=== PATIENT | female | born 1985 | race Caucasian/White ===

== ENCOUNTER 2024-07-03 16:03 | Emergency (ER) | payer OTHER, SELFPAY ==
[2024-07-03 16:13] VITALS: BP 163/99; PULSE 74; RESP 20; TEMP 36.2; O2SAT 99; BMI 38.0
--- NOTE | 2024-07-03 16:15 | ED.GENADULT ---
HPI - General Adult General Chief complaint: Nausea/Vomiting/Diarrhea Stated complaint: vomiting/dehydrated Time Seen by Provider: 07/03/24 22:05 Source: patient Limitations: no limitations History of Present Illness ED Provider: Chelsea Hall PA-C HPI narrative: 38-year-old female with a history of morbid obesity presents with nausea vomiting diarrhea x3 days. Pain across the entire lower abdomen. Associated generalized malaise and poor p.o. intake. Denies fever or cough and cold symptoms. No sick contacts with same symptoms. No use of antibiotics, recent travel or recent hospitalization. Related Data Previous Rx's ?Medication ?Instructions ?Recorded dicyclomine 20 mg tablet 20 mg PO BID PRN diarrhea #7 tabs 07/04/24 ondansetron HCl 4 mg tablet 4 mg PO Q8H PRN nausea and 07/04/24 vomiting #10 tabs Allergies Allergy/AdvReac Type Severity Reaction Status Date / Time No Known Allergies Allergy Verified 07/03/24 16:15 Review of Systems Review of Systems: Yes all other systems are reviewed and are negative Constitutional: Constitutional: Reports fatigue, Denies fever(s) and Reports malaise Cardiovascular: Cardiovascular: Denies chest pain and Denies dyspnea Respiratory: Respiratory: Denies cough and Denies dyspnea Gastrointestinal: Gastrointestinal: Reports abdominal pain, Reports diarrhea, Reports nausea and Reports vomiting Endocrine: Endocrine: Reports fatigue PMFSH Past Medical History Attestation statement: The following information was validated with the patient. Social History Social History Advance Directives: No Advance Directives Information Provided: No Physical Exam ED Vital Signs: Vital Signs - 24 hr 07/03/24 16:13 07/04/24 00:20 07/04/24 00:58 Temperature 97.1 F 99.3 F Pulse Rate 74 67 Respiratory Rate 20 16 12 Blood Pressure 163/99 H 185/88 H Pulse Oximetry 99 99 Oxygen Delivery Method Room Air Room Air BMI result Body Mass Index 38.0 Const Other: Awake, appears older than stated age Orientation/consciousness: patient oriented x3 HENMT Other: Dry oral mucosa Resp Effort & Inspection: normal respiratory effort Cardio Other: Normal peripheral perfusion GI Other: Abdomen is soft, nondistended nontender no guarding obese Skin Other: Warm dry no rash Neuro General: patient oriented x3, no focal motor deficits and CN's II-XI intact bilaterally Psych Other: Calm cooperative Course Course Course Narrative: kendal CONLEY is a rapid medical exam performed by Luis Miguel Sandoval please refer to primary provider for complete H&P- 38 old female presents for evaluation of abdominal pain, nausea, vomiting, diarrhea. Pain is mostly right-sided. Plan for labs, urinalysis and . Will defer any potential imaging to primary ER provider Medications Administered Discontinued Medications Generic Name Dose Route Start Last Admin Trade Name Kemi PRN Reason Stop Dose Admin Sodium Chloride 1,000 mls @ 999 mls/hr 07/03/24 22:15 07/04/24 01:29 Ns IV 07/03/24 23:15 Infused .Q1H1M ALEJANDRO Infusion Sodium Chloride 1,000 mls @ 999 mls/hr 07/03/24 23:30 07/04/24 02:03 Ns IV 07/04/24 00:30 Infused .Q1H1M ALEJANDRO Infusion Ketorolac Tromethamine 15 mg 07/03/24 22:13 07/03/24 23:44 Ketorolac Tromethamine 15 Mg/Ml Vial IVPUSH 07/03/24 22:14 15 mg ONCE ONE Administration Lorazepam 1 mg 07/03/24 23:30 07/03/24 23:43 Lorazepam 2 Mg/Ml Vial IVPUSH 07/03/24 23:31 1 mg ONCE ONE Administration Ondansetron HCl 4 mg 07/03/24 22:07 07/03/24 23:42 Ondansetron Hcl 4 Mg/2 Ml Vial IVPUSH 07/03/24 22:08 4 mg ONCE ONE Administration Procedures Procedure Narrative Procedure Narrative: Ultrasound-guided IV 18 gauge 1-3/4 inch IV placed in the left upper extremity. Adequate blood return, flushes well secured with Tegaderm Medical Decision Making Medical Decision Making MDM Narrative: 38-year-old female with a history of morbid obesity presents with nausea vomiting diarrhea x3 days. Pain across the entire lower abdomen. Associated generalized malaise and poor p.o. intake. Denies fever or cough and cold symptoms. No sick contacts with same symptoms. No use of antibiotics, recent travel or recent hospitalization. No chronic issues History: Per patient I have considered the following differential diagnoses: Viral gastroenteritis, traveler's diarrhea, C diff, diverticulitis Plan: Patient likely has viral gastroenteritis, such illness has been prevalent within the community. She has no risk factors for either traveler's diarrhea or C diff. she has no focal left lower quadrant discomfort to suggest diverticulitis, she has a benign exam, she has not require imaging. Screening labs were already obtained from triage, she appears hemoconcentrated. Her renal function is fine. I have independently reviewed the following tests: Labs: Hemoconcentrated CBC, no electrolyte abnormality, viral panel negative Lab Data 07/03/24 18:56 07/03/24 18:56 Labs: Lab Results 07/03/24 07/03/24 Range/Units 17:21 18:56 WBC 15.4 H (4.8-10.8) X10*3/uL RBC 6.09 H (4.20-5.50) X10*6/uL Hgb 16.5 H (12.0-16.0) g/dl Hct 50.2 H (37.0-47.0) % MCV 82.4 (80.0-98.0) fL MCH 27.1 (27.0-33.0) pg MCHC 32.9 (31.0-35.0) g/dl RDW 13.9 (11.0-16.0) % Plt Count 342 (160-400) X10*3/uL MPV 10.0 (9.4-12.3) fL Immature Gran % (Auto) 0.5 H (0.0-0.4) % Neut % (Auto) 69.2 (45-73) % Lymph % (Auto) 20.1 (20-40) % [place] % (Auto) 8.5 (2-11) % Eos % (Auto) 1.0 (0-4) % Baso % (Auto) 0.7 (0-2) % Lymph # (Auto) 3.1 (1.2-4.9) X10*3/uL [place] # (Auto) 1.3 H (0.1-1.2) X10*3/uL Eos # (Auto) 0.2 (0.0-0.4) X10*3/uL Baso # (Auto) 0.1 (0.0-0.2) X10*3/uL Abs Immat Gran (auto) 0.07 H (0.00-0.03) X10*3/uL Absolute Neuts (auto) 10.7 H (2.0-8.3) x10*3/uL Absolute Nucleated RBC 0.000 (0.0-0.012) X10*3/uL Nucleated RBC % (auto) 0.0 (0.0-0.2) /100WBC Sodium 141 (135-145) mmol/L Potassium 4.6 (3.3-5.1) mmol/L Chloride 109 H (96-108) mmol/L Carbon Dioxide 18 L (22-29) mmol/L Anion Gap 19 (12-20) BUN 17 H (9-16) mg/dL Creatinine 0.79 (0.5-1.4) mg/dL Estim Creat Clear Calc 125.0 Estimated GFR > 60 Random Glucose 112 (60-115) mg/dL Calcium 9.6 (8.4-10.2) mg/dL Total Bilirubin 0.7 (0.0-1.0) mg/dL AST 30 (5-31) U/L ALT 17 (0-31) U/L Alkaline Phosphatase 98 (39-117) U/L Total Protein 8.7 H (6.5-8.0) g/dL Albumin 4.7 (3.5-5.0) g/dL Lipase 15 (8-78) U/L Beta HCG, Quant < 2 mIU/mL Influenza Type A (PCR) NEGATIVE (Negative) Influenza Type B (PCR) NEGATIVE (Negative) RSV RNA Qual (PCR) NEGATIVE (Negative) SARS-CoV-2 RNA (RT-PCR) NEGATIVE (Negative) Discharge Plan Discharge Clinical Impression: Gastroenteritis, Dehydration Patient Disposition: Home, Self-Care Instructions: Dehydration (ED), Gastroenteritis (ED) Additional Instructions: All of your labs were normal. The viral panel was negative. You have a virus causing your symptoms. See home care instructions. You were mildly dehydrated. You received IV fluids while here in the emergency department. Uses Zofran as needed for nausea, you can use the dicyclomine if you develop further diarrhea or have abdominal cramping. Follow up with your primary care provider as needed. Prescriptions: New ondansetron HCl 4 mg tablet 4 mg PO Q8H PRN (Reason: nausea and vomiting) Qty: 10 0RF dicyclomine 20 mg tablet 20 mg PO BID PRN (Reason: diarrhea) Qty: 7 0RF Print Language: Citizen Of [place]
[2024-07-03 18:20] LABS: Influenza A PCR NEGATIVE (Negative); Influenza B PCR NEGATIVE (Negative); Resp Syncy Virus RNA Qual PCR NEGATIVE (Negative); SARS COV2 PCR INHOUSE NEGATIVE (Negative)
--- NOTE | 2024-07-03 18:59 | ECG_ITS ---
Test Reason : CP Blood Pressure : / mmHG Vent. Rate : 067 BPM Atrial Rate : 067 BPM P-R Int : 160 ms QRS Dur : 084 ms QT Int : 382 ms P-R-T Axes : 028 006 048 degrees QTc Int : 403 ms Normal sinus rhythm Moderate voltage criteria for LVH, may be normal variant ( R in aVL , [place] product ) Nonspecific ST abnormality Abnormal ECG No previous ECGs available Referred By: Reggie Sandoval Electronically Signed By:VANIA KENDRICK MD
[2024-07-03 19:02] LABS: MANUAL DIFF FLAG NO
[2024-07-03 19:04] LABS: Basophils Absolute Auto 0.1 X10*3/uL (0.0-0.2); Basophils Percent Auto 0.7 % (0-2); Eosinophils Absolute Auto 0.2 X10*3/uL (0.0-0.4); Hematocrit 50.2 % (37.0-47.0); Hemoglobin 16.5 g/dl (12.0-16.0); Imm Gran Abs Auto 0.07 X10*3/uL (0.00-0.03); Imm Gran Pct Auto 0.5 % (0.0-0.4); Lymphocytes Absolute Auto 3.1 X10*3/uL (1.2-4.9); Lymphocytes Percent Auto 20.1 % (20-40); Mean Corpuscular HGB Conc 32.9 g/dl (31.0-35.0); Mean Corpuscular Hemoglobin 27.1 pg (27.0-33.0); Mean Corpuscular Volume 82.4 fL (80.0-98.0); Monocytes Absolute Auto 1.3 X10*3/uL (0.1-1.2); Monocytes Percent Auto 8.5 % (2-11); Neutrophils Absolute Auto 10.7 x10*3/uL (2.0-8.3); Neutrophils Percent Auto 69.2 % (45-73); Platelet Count 342 X10*3/uL (160-400); Red Blood Count 6.09 X10*6/uL (4.20-5.50); Red Cell Distribution Width 13.9 % (11.0-16.0); White Blood Count 15.4 X10*3/uL (4.8-10.8)
[2024-07-03 19:21] LABS: Alanine Aminotransferase 17 U/L (0-31); Albumin Level 4.7 g/dL (3.5-5.0); Alkaline Phosphatase 98 U/L (39-117); Anion Gap 19 (12-20); Aspartate Amino Transferase 30 U/L (5-31); Bilirubin Total 0.7 mg/dL (0.0-1.0); Blood Urea Nitrogen 17 mg/dL (9-16); Calcium 9.6 mg/dL (8.4-10.2); Carbon Dioxide 18 mmol/L (22-29); Chloride 109 mmol/L (96-108); Estimated Glomerular Filt Rate > 60; Glucose Random 112 mg/dL (60-115); Lipase 15 U/L (8-78); Potassium 4.6 mmol/L (3.3-5.1); Sodium 141 mmol/L (135-145); Total Protein 8.7 g/dL (6.5-8.0)
[2024-07-03 19:28] LABS: HCG Quantitative < 2 mIU/mL
--- NOTE | 2024-07-03 23:38 | PC.NURSE ---
Pt required US guided line. meds late due to IV line placement. Plan of care ongoing.
[2024-07-03] MEDS: ondansetron HCL 4 MG/2 ML VIAL IVPUSH (23:42)
[2024-07-03] MEDS: LORazepam 2 MG/ML VIAL 1 MG IVPUSH (23:43)
[2024-07-03] MEDS: Ketorolac Tromethamine 15 MG/ML VIAL IVPUSH (23:44)
[2024-07-03] MEDS: 0.9 % Sodium Chloride 1,000 ML 999 ML IV ×2 (23:46→23:47)
--- NOTE | 2024-07-03 23:50 | PC.NURSE ---
Pt medicated per [facility] Plan of care ongoing.
[2024-07-04 00:20] VITALS: BP 185/88; PULSE 67; RESP 16; TEMP 37.4; O2SAT 99
--- NOTE | 2024-07-04 00:27 | MHC.EDTECH ---
This pct assumed care of Patient at 2300 ,Pt sleeping ,vitals taken ,CK Black is aware of pt high blood Pressure .
[2024-07-04 00:58] VITALS: RESP 12
[2024-07-04 02:00] VITALS: BP 152/88; PULSE 60; RESP 18; TEMP 37; O2SAT 98
[2024-07-04 02:27] VITALS: BP 152/88; PULSE 60; RESP 18; TEMP 37; O2SAT 98
== END 2024-07-04 02:30 | disposition home or self-care (01) ==
PROVIDERS: Physician Assistant; Emergency Provider Emergency Medicine; PCP Family Medicine
DX: K52.9 Noninfective gastroenteritis and colitis, unspecified (principal); E86.0 Dehydration; R11.2 Nausea with vomiting, unspecified; R10.30 Lower abdominal pain, unspecified; R53.81 Other malaise; Z03.818 Encounter for observation for suspected exposure to other biological agents ruled out
CPT/HCPCS: 0241U; 36415; 80053; 83690; 84702; 85025; 93005; 96361; 96374; 96375; 99285; J1885; J2060; J2405

== ENCOUNTER → 2024-07-03 18:59 | Outpatient (BNV) | payer OTHER, SELFPAY | PROVIDERS: Emergency Provider Emergency Medicine; PCP Family Medicine; Visit Provider Internal Medicine Cardiovascular Disease | DX: R07.9 Chest pain, unspecified (principal) | CPT/HCPCS: 93010 ==

== ENCOUNTER 2024-10-17 18:11 | Inpatient (IN) | payer OTHER, SELFPAY ==
--- NOTE | ~2024-10-17 | CT_ITS ---
CLINICAL HISTORY: LLQ pain CT abdomen and pelvis with contrast Comparison: None available Findings: Mild bibasilar atelectasis. Mild fat deposition of the liver. The gallbladder is surgically absent. Splenomegaly with spleen measuring 16.3 cm. The adrenal glands are normal. Mild-moderate volume loss of the imaged pancreas. Mild adjacent fluid and upper abdomen may reflect pancreatitis. Johnna mesentery also present with small mesenteric and periaortic lymph nodes. No small bowel obstruction. Mild dilatation of the appendix with small appendicolith present concerning for appendicitis (image 113 of series 8). Fluid in the cecum as can be seen with diarrhea type illnesses and mild colitis. Otherwise moderate to severe distal stool burden. Uterus is anteverted with intrauterine device in place. No adnexal soft tissue mass by CT. Mild wall thickening of the urinary bladder. Mild fluid in the pelvis is nonspecific and mildly greater than expected for physiologic fluid. No free intraperitoneal air. No definite drainable abscess by CT. No definite hardware loosening at L4-L5. No definite hardware loosening of the plate and screw fixation dorsal acetabular repair of the right hip where severe osteoarthritis is present. Small loose bodies and capsular calcifications also noted. Mild lucency of the old previous fracture persists of the upper acetabulum on the right. Mild-moderate osteoarthritis of the left hip also greater than expected for age. Facet arthropathy is multifocal including lower lumbar spine. IMPRESSION: 1. Mild/borderline dilatation of the appendix with appendicolith present concerning for appendicitis. 2. Splenomegaly. This document has been electronically signed by: Martin Cohen MD on 10/17/2024 22:27:19
[2024-10-17 18:34] VITALS: BP 165/85; PULSE 71; RESP 16; TEMP 36.9; O2SAT 96; BMI 41.7
[2024-10-17] MEDS: Ondansetron ODT 4 MG TAB.RAPDIS TRANSLINGU (18:39)
--- NOTE | 2024-10-17 18:39 | ED.GENADULT ---
HPI - General Adult General Chief complaint: Nausea/Vomiting/Diarrhea Stated complaint: Vomiting Time Seen by Provider: 10/17/24 20:27 Source: patient Limitations: no limitations History of Present Illness ED Provider: Chelsea Hall PA-C HPI narrative: 39-year-old female with a history of morbid obesity presents with abdominal pain x2 days. Pain across the lower abdomen, radiates to bilateral low back, unable to describe the nature of her discomfort. Associated nausea, vomiting and dysuria. Denies fever, diarrhea. Denies history of kidney stones, no hematuria. Related Data Previous Rx's ?Medication ?Instructions ?Recorded dicyclomine 20 mg tablet 20 mg PO BID PRN diarrhea #7 tabs 07/04/24 ondansetron HCl 4 mg tablet 4 mg PO Q8H PRN nausea and 07/04/24 vomiting #10 tabs Allergies Allergy/AdvReac Type Severity Reaction Status Date / Time No Known Allergies Allergy Verified 10/17/24 18:37 Review of Systems Review of Systems: Yes all other systems are reviewed and are negative Constitutional: Constitutional: Denies fatigue and Denies fever(s) Cardiovascular: Cardiovascular: Denies chest pain and Denies dyspnea Respiratory: Respiratory: Denies cough and Denies dyspnea Gastrointestinal: Gastrointestinal: Reports abdominal pain, Denies diarrhea, Reports nausea and Reports vomiting Genitourinary: Genitourinary: Reports dysuria Musculoskeletal: Musculoskeletal: Reports back pain Endocrine: Endocrine: Denies fatigue PMFSH Past Medical History Attestation statement: The following information was validated with the patient. Social History Social History Smoked in Last 30 Days: Yes Use of substances other than those prescribed or required for medical reasons: No Advance Directives: No Advance Directives Information Provided: No Patient : No Physical Exam ED Vital Signs: Vital Signs - 24 hr 10/17/24 18:34 10/17/24 20:21 10/17/24 22:01 Temperature 98.4 F 98.2 F 98.1 F Pulse Rate 71 65 64 Respiratory Rate 16 19 14 Blood Pressure 165/85 H 156/80 H 115/53 L Pulse Oximetry 96 95 92 Oxygen Delivery Method Room Air Room Air Room Air BMI result Body Mass Index 41.7 Const Other: Alert, appears older than stated age Orientation/consciousness: patient oriented x3 Resp Effort & Inspection: normal respiratory effort Cardio Other: Normal peripheral perfusion GI Other: Abdomen is soft, obese, nondistended, mild to moderate tenderness over entire lower abdomen, minimal guarding at times, Skin Other: Warm dry no rash Neuro General: patient oriented x3, gait normal, no focal motor deficits and CN's II-XI intact bilaterally Psych Other: Cooperative Course Course Course Narrative: RME: 39-year-old female presents to ED for lower abdominal pain with diarrhea nausea and vomiting. Patient denies any fever or chills. Mom abdominal tenderness. Labs UA ordered. Consultations Consultation #1: paging Dr. Maldonado , Pt will be admitted to her service Time: 22:33 Medications Administered Generic Name Dose Route Start Last Admin Trade Name Freq PRN Reason Stop Dose Admin Lactated Ringer's 1,000 mls @ 150 mls/hr 10/17/24 23:45 10/18/24 06:30 Lr IVCONT Not Given .Q6H40M ALEJANDRO Sodium Chloride 1,000 mls @ 100 mls/hr 10/17/24 23:45 10/18/24 00:15 Ns IVCONT 100 mls/hr .Q10H ALEJANDRO Administration Piperacillin Sod/Tazobactam 50 mls @ 100 mls/hr 10/18/24 04:00 10/18/24 04:26 Sod 3.375 gm/ Sodium Chloride IV Infused Q6H ALEJANDRO Infusion Morphine Sulfate 4 mg 10/18/24 03:09 10/18/24 03:21 Morphine Sulfate 4 Mg/Ml Cartridge IVPUSH 4 mg Q4H PRN Administration Pain, Severe (Pain Scale 7-10) Protocol Ondansetron HCl 4 mg 10/17/24 23:34 10/18/24 03:21 Ondansetron Hcl 4 Mg/2 Ml Vial IVPUSH 4 mg Q8H PRN Administration Nausea and Vomiting Sodium Chloride 3 ml 10/18/24 00:00 10/18/24 00:19 0.9 % Sodium Chloride Flush 3 Ml Syringe IVFLUSH Not Given QSHIFT ALEJANDRO Discontinued Medications Generic Name Dose Route Start Last Admin Trade Name Freq PRN Reason Stop Dose Admin Sodium Chloride 1,000 mls @ 999 mls/hr 10/17/24 20:30 10/17/24 22:51 Ns IV 10/17/24 21:30 Infused .Q1H1M ALEJANDRO Infusion Piperacillin Sod/Tazobactam 50 mls @ 100 mls/hr 10/17/24 22:41 10/17/24 23:28 Sod 3.375 gm/ Sodium Chloride IV 10/17/24 23:10 Infused ONCE ONE Infusion Iohexol 85 ml 10/17/24 21:18 10/17/24 21:19 Iohexol 350 Mg/Ml 100 Ml Infus..Btl IV 10/17/24 21:19 85 ml ONCE ONE Administration Lorazepam 1 mg 10/17/24 22:32 10/17/24 22:53 Lorazepam 2 Mg/Ml Vial IVPUSH 10/17/24 22:33 1 mg ONCE ONE Administration Morphine Sulfate 4 mg 10/17/24 20:30 10/17/24 20:53 Morphine Sulfate 4 Mg/Ml Cartridge IVPUSH 10/17/24 20:31 4 mg ONCE ONE Administration Protocol Morphine Sulfate 4 mg 10/17/24 22:41 10/17/24 22:53 Morphine Sulfate 4 Mg/Ml Cartridge IVPUSH 10/17/24 22:42 4 mg ONCE ONE Administration Protocol Ondansetron HCl 4 mg 10/17/24 18:38 10/17/24 18:39 Ondansetron Odt 4 Mg Tab.Rapdis TRANSLINGU 10/17/24 18:39 4 mg ONCE ONE Administration Ondansetron HCl 4 mg 10/17/24 20:30 10/17/24 20:53 Ondansetron Hcl 4 Mg/2 Ml Vial IVPUSH 10/17/24 20:31 4 mg ONCE ONE Administration Procedures Procedure Narrative Procedure Narrative: Ultrasound-guided IV 18 gauge 1-3/4 inch IV placed in left upper extremity, adequate blood return, flushes well secured with Tegaderm Medical Decision Making Medical Decision Making MDM Narrative: 39-year-old female with a history of morbid obesity presents with abdominal pain x2 days. Pain across the lower abdomen, radiates to bilateral low back, unable to describe the nature of her discomfort. Associated nausea, vomiting and dysuria. Denies fever, diarrhea. Denies history of kidney stones, no hematuria. Problem: Morbid obesity History: Per patient I have considered the following differential diagnoses: Renal colic, pyelonephritis, UTI, diverticulitis , appy Plan: Given lower abd pain, we will be obtaining a CT scan to rule out diverticulitis vs appy. She was endorsing dysuria, urinalysis returned, it was contaminated, so not pyelo. She is not having flank or upper back pain to suggest renal colic. CT pending. We will be giving Zofran, morphine and fluid. I have independently reviewed the following tests: Labs: No leukocytosis, not anemic, no electrolyte abnormality, not , urine not infected it was contaminated, viral panel negative CT abdomen and pelvis:IMPRESSION: 1. Mild/borderline dilatation of the appendix with appendicolith present concerning for appendicitis. 2. Splenomegaly. Lab Data 10/17/24 20:10 10/17/24 20:10 Labs: Lab Results 10/17/24 10/17/24 Range/Units 18:46 20:10 WBC 8.2 (4.8-10.8) X10*3/uL RBC 5.06 (4.20-5.50) X10*6/uL Hgb 14.3 (12.0-16.0) g/dl Hct 42.0 (37.0-47.0) % MCV 83.0 (80.0-98.0) fL MCH 28.3 (27.0-33.0) pg MCHC 34.0 (31.0-35.0) g/dl RDW 14.6 (11.0-16.0) % Plt Count 197 D (160-400) X10*3/uL MPV 9.9 (9.4-12.3) fL Immature Gran % (Auto) 1.6 H (0.0-0.4) % Neut % (Auto) 73.8 H (45-73) % Lymph % (Auto) 14.6 L (20-40) % [place] % (Auto) 8.0 (2-11) % Eos % (Auto) 1.6 (0-4) % Baso % (Auto) 0.4 (0-2) % Lymph # (Auto) 1.2 (1.2-4.9) X10*3/uL [place] # (Auto) 0.7 (0.1-1.2) X10*3/uL Eos # (Auto) 0.1 (0.0-0.4) X10*3/uL Baso # (Auto) 0.0 (0.0-0.2) X10*3/uL Abs Immat Gran (auto) 0.13 H (0.00-0.03) X10*3/uL Absolute Neuts (auto) 6.0 (2.0-8.3) x10*3/uL Absolute Nucleated RBC 0.000 (0.0-0.012) X10*3/uL Nucleated RBC % (auto) 0.0 (0.0-0.2) /100WBC Sodium 142 (135-145) mmol/L Potassium 4.0 (3.3-5.1) mmol/L Chloride 109 H (96-108) mmol/L Carbon Dioxide 23 (22-29) mmol/L Anion Gap 14 (12-20) BUN 13 (9-16) mg/dL Creatinine 0.69 (0.5-1.4) mg/dL Estim Creat Clear Calc 149.2 Estimated GFR > 60 Random Glucose 86 (60-115) mg/dL Calcium 8.9 D (8.4-10.2) mg/dL Total Bilirubin 0.6 (0.0-1.0) mg/dL AST 28 (5-31) U/L ALT 24 (0-31) U/L Alkaline Phosphatase 84 (39-117) U/L Total Protein 6.9 (6.5-8.0) g/dL Albumin 4.1 (3.5-5.0) g/dL Lipase 14 (8-78) U/L Beta HCG, Quant < 2 mIU/mL Urine Color Dark Yellow Urine Appearance Turbid Urine pH 6.0 (5.0-9.0) Ur Specific [place] 1.025 (1.005-1.025) Urine Protein 30 (1+) H (Neg-Trace) mg/dL Urine Glucose (UA) Negative (Negative) mg/dL Urine Ketones Trace (Negative) mg/dL Urine Blood Negative (Negative) Urine Nitrite Negative (Negative) Ur Leukocyte Esterase Large (3+) H (Negative) Urine RBC 0-2 (0-2) /HPF Urine WBC >50 H (0-5) /HPF Ur Squamous Epith Cells >20 (0-2) /HPF Urine Bacteria 4+ (None Seen) Hyaline Casts 11-20 (0-2) /LPF Influenza Type A (PCR) NEGATIVE (Negative) Influenza Type B (PCR) NEGATIVE (Negative) RSV RNA Qual (PCR) NEGATIVE (Negative) SARS-CoV-2 RNA (RT-PCR) NEGATIVE (Negative) Discharge Plan Discharge Clinical Impression: Acute appendicitis Patient Disposition: Admitted As Inpatient
[2024-10-17 19:29] LABS: Influenza A PCR NEGATIVE (Negative); Influenza B PCR NEGATIVE (Negative); Resp Syncy Virus RNA Qual PCR NEGATIVE (Negative); SARS COV2 PCR INHOUSE NEGATIVE (Negative)
[2024-10-17 20:16] LABS: MANUAL DIFF FLAG NO
[2024-10-17 20:20] LABS: Appearance Urine Turbid; Color Urine Dark Yellow; Glucose Urine UA Negative (Negative); Leukocyte Esterase Urine Large (3+) (Negative); Nitrite Urine Negative (Negative); Specific Gravity - Urine 1.025 (1.005-1.025); UMIC TRIGGER UACC YES; Urine Blood Negative (Negative); Urine Ketones Trace mg/dL (Negative); Urine Protein 30 (1+) mg/dL (Neg-Trace)
[2024-10-17 20:21] VITALS: BP 156/80; PULSE 65; RESP 19; TEMP 36.8; O2SAT 95
[2024-10-17 20:36] LABS: Bacteria Urine 4+ (None Seen); RBC Urine 0-2 /HPF (0-2); Squamous Epithelial Cell Urine >20 /HPF (0-2); UACC Culture Trigger YES; WBC Urine >50 /HPF (0-5)
[2024-10-17 20:37] LABS: Alanine Aminotransferase 24 U/L (0-31); Albumin Level 4.1 g/dL (3.5-5.0); Alkaline Phosphatase 84 U/L (39-117); Anion Gap 14 (12-20); Aspartate Amino Transferase 28 U/L (5-31); Bilirubin Total 0.6 mg/dL (0.0-1.0); Blood Urea Nitrogen 13 mg/dL (9-16); Calcium 8.9 mg/dL (8.4-10.2); Carbon Dioxide 23 mmol/L (22-29); Chloride 109 mmol/L (96-108); Creatinine Clr Calc Pharmacy 149.2; Estimated Glomerular Filt Rate > 60; Glucose Random 86 mg/dL (60-115); Lipase 14 U/L (8-78); Sodium 142 mmol/L (135-145); Total Protein 6.9 g/dL (6.5-8.0)
[2024-10-17 20:40] LABS: Basophils Percent Auto 0.4 % (0-2); Eosinophils Absolute Auto 0.1 X10*3/uL (0.0-0.4); Eosinophils Percent Auto 1.6 % (0-4); HCG Quantitative < 2 mIU/mL; Hemoglobin 14.3 g/dl (12.0-16.0); Imm Gran Abs Auto 0.13 X10*3/uL (0.00-0.03); Imm Gran Pct Auto 1.6 % (0.0-0.4); Lymphocytes Absolute Auto 1.2 X10*3/uL (1.2-4.9); Lymphocytes Percent Auto 14.6 % (20-40); Mean Corpuscular Hemoglobin 28.3 pg (27.0-33.0); Mean Platelet Volume 9.9 fL (9.4-12.3); Monocytes Absolute Auto 0.7 X10*3/uL (0.1-1.2); Neutrophils Percent Auto 73.8 % (45-73); Platelet Count 197 X10*3/uL (160-400); Red Blood Count 5.06 X10*6/uL (4.20-5.50); Red Cell Distribution Width 14.6 % (11.0-16.0); White Blood Count 8.2 X10*3/uL (4.8-10.8)
[2024-10-17] MEDS: Morphine Sulfate 4 MG/ML CARTRIDGE IVPUSH ×2 (20:53→22:53)
[2024-10-17] MEDS: ondansetron HCL 4 MG/2 ML VIAL IVPUSH (20:53)
[2024-10-17] MEDS: 0.9 % Sodium Chloride 1,000 ML 999 ML IV (20:54)
[2024-10-17] MEDS: iohexoL 350 MG/ML 100 ML INFUS..BTL 85 ML IV (21:19)
[2024-10-17 22:01] VITALS: BP 115/53; PULSE 64; RESP 14; TEMP 36.7; O2SAT 92
[2024-10-17] MEDS: LORazepam 2 MG/ML VIAL 1 MG IVPUSH (22:53)
[2024-10-17] MEDS: Piperacillin Sodium/Tazobactam 3.375 GM in 0.9 % Sodium Chloride 50 ML IV (22:54)
[2024-10-18] VITALS (15 sets, daily range): BP systolic 114–175; BP diastolic 54–81; PULSE 58–75; RESP 15–20; TEMP 36.3–37.1; O2SAT 95–99
[2024-10-18] MEDS: 0.9 % Sodium Chloride 1,000 ML 100 ML IVCONT ×2 (00:15→10:28)
--- NOTE | 2024-10-18 03:11 | PC.NURSE ---
Per MD Madlonado, Morphine 4mg IVpush ordered changed to PRN Q4h.
[2024-10-18] MEDS: Morphine Sulfate 4 MG/ML CARTRIDGE IVPUSH ×4 (03:21→20:03)
[2024-10-18] MEDS: ondansetron HCL 4 MG/2 ML VIAL IVPUSH ×3 (03:21→19:00)
[2024-10-18] MEDS: Piperacillin Sodium/Tazobactam 3.375 GM in 0.9 % Sodium Chloride 50 ML IV ×2 (03:56→10:28)
--- NOTE | 2024-10-18 06:22 | PC.NURSE ---
late entry- pt refused lab draw this morning
--- NOTE | 2024-10-18 07:47 | PC.NURSE ---
Dr. Mcdonnell at bedside for consult.
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
[2024-10-18] MEDS: LORazepam 2 MG/ML VIAL 1 MG IVPUSH (08:32)
[2024-10-18 10:17] LABS: Alanine Aminotransferase 19 U/L (0-31); Albumin Level 3.4 g/dL (3.5-5.0); Alkaline Phosphatase 65 U/L (39-117); Anion Gap 10 (12-20); Aspartate Amino Transferase 26 U/L (5-31); Bilirubin Total 0.5 mg/dL (0.0-1.0); Blood Urea Nitrogen 13 mg/dL (9-16); Calcium 8.1 mg/dL (8.4-10.2); Carbon Dioxide 24 mmol/L (22-29); Chloride 111 mmol/L (96-108); Creatinine Clr Calc Pharmacy 133.7; Estimated Glomerular Filt Rate > 60; Glucose Random 85 mg/dL (60-115); Potassium 3.6 mmol/L (3.3-5.1); Sodium 141 mmol/L (135-145); Total Protein 5.7 g/dL (6.5-8.0)
--- NOTE | 2024-10-18 10:32 | PC.NURSE ---
Patient states pain is getting worse got morphine not helping Dr. Mcdonnell came to talk to patient.
--- NOTE | 2024-10-18 10:33 | PHA.MEDREC ---
Pharmacy Consult ? Medication Reconciliation Pharmacy has completed the medication reconciliation. Spoke with patient and she knew her medications. She states he has been taking Lorazepam 1mg tablets up to three times a day as needed for her anxiety. She confirmed she gets Methadone 140mg she last took yesterday from a clinic around here. Patient confirmed she is taking Escitalopram 20mg tabs once daily now.
--- NOTE | 2024-10-18 11:07 | PM.EVENT ---
Event Note Date of Service: 10/18/24 Event Note: Seen again this morning She says that her pain has not improved and not well controlled I reviewed with her the option of appendectomy She says she is willing to do this now I explained the technique of this procedure as was the risks, benefits, and alternatives She understands and agrees to proceed She is very anxious about this I have also talked to her sister Ellen [phone] Time Spent With Patient Time: Total time managing care of this patient today ____ minutes.
--- NOTE | 2024-10-18 11:59 | PC.NURSE ---
Call received from Short Stay. RN to RN report completed with Ta. Ta given opportunity for questions and all questions answered to her satisfaction. Pt will be proceeding to Short Stay in approx. 10 minutes.
--- NOTE | 2024-10-18 12:20 | HO.ANESPROP2 ---
HPI - Anesthesia Eval Consult details Narrative: For lap. appendectomy PMFSH Active Problems Active Problems: All Active Problems Anxiety and depression (Acute) Morbid obesity (Acute) Acute appendicitis (Acute) Past Medical History Medical History (Updated 10/18/24 @ 07:55 by Jim Mcdonnell MD) Anxiety and depression Morbid obesity Patient : No Family History Family history of problems with anesthesia: No Surgical History History of Problems with Anesthesia: No Social History Social History Household Members: Children Housing: Apartment Do you presently have visiting nurse or other home services: No Patient Tobacco Use Status: Current everyday Tobacco user Tobacco use type: Cigarette Cigarettes Per Day: 5 service: No Meds Allergies Allergy/AdvReac Type Severity Reaction Status Date / Time No Known Allergies Allergy Verified 10/17/24 18:37 Active Medications: Current Medications Acetaminophen (Acetaminophen 325 Mg Tablet) 650 mg PO Q6H PRN PRN Reason: Pain, Mild 1-3,fever,headache Calcium Carbonate (Calcium Carbonate 750 Mg Tab.Chew) 750 mg PO Q4H PRN PRN Reason: Heartburn Lactated Ringer's (Lr) 1,000 mls @ 150 mls/hr IVCONT .Q6H40M [facility] Last Admin: 10/18/24 06:30 Dose: Not Given Sodium Chloride (Ns) 1,000 mls @ 100 mls/hr IVCONT .Q10H [facility] Last Admin: 10/18/24 10:28 Dose: 100 mls/hr Piperacillin Sod/Tazobactam (Sod 3.375 gm/ Sodium Chloride) 50 mls @ 100 mls/hr IV Q6H [facility] Last Infusion: 10/18/24 11:00 Dose: Infused Morphine Sulfate (Morphine Sulfate 4 Mg/Ml Cartridge) 4 mg IVPUSH Q4H PRN; Protocol PRN Reason: Pain, Severe (Pain Scale 7-10) Last Admin: 10/18/24 08:22 Dose: 4 mg Ondansetron HCl (Ondansetron Hcl 4 Mg/2 Ml Vial) 4 mg IVPUSH Q8H PRN PRN Reason: Nausea and Vomiting Last Admin: 10/18/24 03:21 Dose: 4 mg Sodium Chloride (0.9 % Sodium Chloride Flush 3 Ml Syringe) 3 ml IVFLUSH QSHIFT [facility] Last Admin: 10/18/24 07:19 Dose: Not Given Home Medications ?Medication ?Instructions ?Recorded ?Confirmed ?Last Taken ?Type bupropion HCl 150 mg 24 hr tablet, 150 mg PO DAILY 10/18/24 10/18/24 10/15/24 History extended release escitalopram oxalate 20 mg tablet 20 mg PO DAILY 10/18/24 10/18/24 10/15/24 History ibuprofen 800 mg tablet 800 mg PO TID 10/18/24 10/18/24 10/15/24 History lorazepam 1 mg tablet 1 mg PO BID PRN Anxiety 10/18/24 10/18/24 Unknown History methadone 10 mg/mL oral concentrate 140 mg PO DAILY 10/18/24 Unknown History trazodone 100 mg tablet 100 mg PO BEDTIME 10/18/24 10/18/24 10/15/24 History Exam Height,Weight and Vital Signs: Height 5 ft 8 in Weight 124.4 kg Last Vital Signs Temp 98.2 F 10/18/24 08:28 Pulse 62 10/18/24 08:28 Resp 16 10/18/24 08:28 BP 130/67 10/18/24 08:28 Pulse Ox 97 10/18/24 08:28 O2 Del Method Room Air 10/18/24 08:28 Pertinent Lab Results Pertinent Lab Results: Laboratory Tests 10/17/24 10/17/24 10/18/24 18:46 20:10 09:49 WBC 8.2 RBC 5.06 Hgb 14.3 Hct 42.0 MCV 83.0 MCH 28.3 MCHC 34.0 RDW 14.6 Plt Count 197 D MPV 9.9 Immature Gran % (Auto) 1.6 H Neut % (Auto) 73.8 H Lymph % (Auto) 14.6 L [place] % (Auto) 8.0 Eos % (Auto) 1.6 Baso % (Auto) 0.4 Lymph # (Auto) 1.2 [place] # (Auto) 0.7 Eos # (Auto) 0.1 Baso # (Auto) 0.0 Abs Immat Gran (auto) 0.13 H Absolute Neuts (auto) 6.0 Absolute Nucleated RBC 0.000 Nucleated RBC % (auto) 0.0 Hold Purple Top SEE NOTE Sodium 142 141 Potassium 4.0 3.6 Chloride 109 H 111 H Carbon Dioxide 23 24 Anion Gap 14 10 L BUN 13 13 Creatinine 0.69 0.77 Estim Creat Clear Calc 149.2 133.7 Estimated GFR > 60 > 60 Random Glucose 86 85 Calcium 8.9 D 8.1 L D Total Bilirubin 0.6 0.5 AST 28 26 ALT 24 19 Alkaline Phosphatase 84 65 Total Protein 6.9 5.7 L Albumin 4.1 3.4 L Lipase 14 Beta HCG, Quant < 2 Urine Color Dark Yellow Urine Appearance Turbid Urine pH 6.0 Ur Specific [place] 1.025 Urine Protein 30 (1+) H Urine Glucose (UA) Negative Urine Ketones Trace Urine Blood Negative Urine Nitrite Negative Ur Leukocyte Esterase Large (3+) H Urine RBC 0-2 Urine WBC >50 H Ur Squamous Epith Cells >20 Urine Bacteria 4+ Hyaline Casts 11-20 Influenza Type A (PCR) NEGATIVE Influenza Type B (PCR) NEGATIVE RSV RNA Qual (PCR) NEGATIVE SARS-CoV-2 RNA (RT-PCR) NEGATIVE Airway Mallampati Class: II TM Dist: >3cm Neck ROM: Full Denture: Upper and Lower Heart: ok Lungs: ok Assessment and Plan Assessment Anesthesia Assessment: Anesthesia Plan Discussed and Chart Reviewed Final Anesthetic Review Family History of Problems with Anesthesia: No History of Problems with Anesthesia: No NPO: Yes ASA Class: III Final Preanesthetic Review: No Changes in Pt Med Stat, Meds/Allgs Chart Reviewed, Consent Obtained/Reviewed and Anes Risks/Benef Reviewed Patient Risk: Intermediate Procedure Risk: Intermediate Anesthetic Plan Anesthetic Plan: GA and Agree w/ Assess. and Plan Disposition: Standard PACU
--- NOTE | 2024-10-18 12:23 | MHC.CM.PN ---
pt is independent lives with dgter she has her own ride home when dcd dc home n/s
[2024-10-18] MEDS: Lactated Ringers 500 ML 20 ML IVCONT (12:59)
--- NOTE | 2024-10-18 14:11 | P.OP_ITS ---
Operative Note Operative Note Date of Service: 10/18/24 Narrative: Preop diagnosis: Acute appendicitis Postop diagnosis: Acute appendicitis, with mildly erythematous appendix Procedure: Laparoscopic appendectomy, lysis of adhesions Surgeon: Jim Mcdonnell MD care management assistant: LEXIE Santiago The patient is a 39 year old female admitted for right lower quadrant pain, with a CAT scan suggestive of early appendicitis with an appendicolith. You have worsening of symptoms with persistent pain on the right lower quadrant, she agreed to proceed with laparoscopic appendectomy. She understood the technique of the planned procedure as well as the risks, benefits, and alternatives She was brought to the operating room and placed in supine position under general anesthesia via endotracheal tube. A Hall catheter was inserted. The abdomen was prepped and draped in usual sterile fashion. A surgical time-out was done. The patient was receiving scheduled IV antibiotics I made a short infraumbilical incision with a blade 15. And this was carried down bluntly through the full-thickness of the skin and subcutaneous fat to expose the fascia. Then noticed a defect on the fascia consistent with the umbilical hernia. There was note of omentum within this defect. I bluntly dissected this and applied Renuka clamps on the fascial defect. I placed my stay sutures. I then inserted the Spr[place] port. We insufflated to a pressure of 15 mm Hg. From here on the rest of the procedure was done under vision with the 5 mm laparoscope Laparoscopic visualization I inserted a 5 mm port in the left lower quadrant. A 5 mm port was introduced in the suprapubic margin. Graspers were placed with the working ports. The patient was placed in a head down and [id number] position. There was note of adhesions in the lower abdomen consisting of omentum. We carefully lyse this with the use of the LigaSure. I then proceeded to use the graspers to reflect bowel loops away from the right lower quadrant. I identified the cecum and by doing so was able to see the appendix. The appendix was mildly erythematous throughout the entire length. I applied graspers on the mesoappendix to retract this. I created a mesenteric window on the mesoappendix near the base using the [place] dissector. I then divided the appendix using an Endo-KATHLEEN 30 mm stapler at the base. I completed resection of the appendix by dividing the attached mesoappendix using the LigaSure. The ap pendix was retrieved through an endobag through the umbilical incision. I reinserted all ports and re-insufflated. I examined the area of dissection. The staple line was intact and there was no evidence of any bleeding. I observed all 4 quadrants. There was no other pathology seen but there was note of adhesions consisting of omental fat without bowel loops to the left of the midline. He was no evidence of any bowel injury I desufflated through the port sites. I removed all ports under vision with the laparoscope. The umbilical port was removed last The fascia umbilical incision which was actually a hernia was closed with a [id number] Polysorb 0 stitch Skin closure was achieved on all incisions using Polysorb 4-0 subcuticular sutures All incisions were infiltrated with Marcaine 0.5% for postop analgesia. Dressings were applied. The procedure was completed The patient tolerated the procedure well. There were no immediate complications. Initial and final counts of sponges and instruments were correct. Estimated blood loss was less than 10 cc. The patient was extubated without difficulty and transferred to the recovery room with stable vital signs.
[2024-10-18] MEDS: HYDROmorphone HCl 0.5 MG/0.5 ML SYRINGE 1 MG IVPUSH (14:35)
--- NOTE | 2024-10-18 14:47 | HE.PHANOTE ---
Methadone verified last dose 10/17/24 4pm 140 mg AL Figueredo MA
[2024-10-18] MEDS: Lactated Ringers 1,000 ML 80 ML IVCONT (15:40)
[2024-10-18] MEDS: oxyCODONE HCl Immed Release 5 MG TABLET 10 MG PO ×2 (17:07→23:05)
--- NOTE | 2024-10-18 17:14 | PM.EVENT ---
Event Note Date of Service: 10/18/24 Event Note: Seen now postop Status post laparoscopic appendectomy Appears to have good pain control Stable vital signs Looks well Abdomen is soft Pain management - she is also on methadone so anticipate higher doses of narcotics for pain control Okay to have regular diet Possible DC home tomorrow Family updated by phone - sister Ellen Time Spent With Patient Time: Total time managing care of this patient today ____ minutes.
[2024-10-18] MEDS: Nicotine 21 MG PATCH.TD24 TRANSDERMA (18:59)
[2024-10-18] MEDS: Nicotine Polacrilex 2 MG GUM BUCCAL (18:59)
[2024-10-18] MEDS: Docusate Sodium 100 MG CAPSULE PO (19:41)
[2024-10-18] MEDS: LORazepam 1 MG TABLET PO (19:41)
[2024-10-18] MEDS: traZODone HCL 100 MG TABLET PO (19:41)
[2024-10-18] MEDS: methADONE HCl 20 MG/2 ML ORAL.CONC 140 MG PO (19:41)
[2024-10-19] MEDS: Morphine Sulfate 4 MG/ML CARTRIDGE IVPUSH ×5 (02:19→20:24)
[2024-10-19] MEDS: Lactated Ringers 1,000 ML 80 ML IVCONT ×2 (02:24→17:50)
[2024-10-19 03:20] VITALS: BP 121/60; PULSE 67; RESP 18; TEMP 37.3; O2SAT 92
--- NOTE | 2024-10-19 07:16 | PM.PNGS ---
Subjective Subjective Date of Service: 10/19/24 <Yumiko Barber - Last Filed: 10/19/24 07:20> 10/19/24 <Kelly Gaytan PA-C - Last Filed: 10/19/24 07:44> 10/20/24 <Jim Mcdonnell MD - Last Filed: 10/20/24 08:25> Interval history: Patient reports a great deal of pain this morning. She is hungry but eating and drinking has made her more nauseous. Ambulating to the bathroom. <Yumiko Barber - Last Filed: 10/19/24 07:20> Physical Exam Vital Signs: Vital Signs: Last Vital Signs Temp 99.2 F 10/19/24 03:20 Pulse 67 10/19/24 03:20 Resp 18 10/19/24 03:20 BP 121/60 10/19/24 03:20 Pulse Ox 92 10/19/24 03:20 O2 Del Method Room Air 10/19/24 03:20 O2 Flow Rate 2 10/18/24 14:30 BMI result Body Mass Index 41.7 <Yumiko Barber - Last Filed: 10/19/24 07:20> Const: Other: Uncomfortable <Yumiko Barber - Last Filed: 10/19/24 07:20> Orientation/consciousness: patient oriented x3 <Yumiko Barber - Last Filed: 10/19/24 07:20> Resp: Effort & Inspection: normal respiratory effort <Yumiko Barber - Last Filed: 10/19/24 07:20> Cardio: Rate: regular rate <Yumiko Barber - Last Filed: 10/19/24 07:20> Rhythm: regular rhythm <Yumiko Barber - Last Filed: 10/19/24 07:20> GI: Other: Dressing in place over incision, no discharge present Tenderness to palpation over incision Soft <Yumiko Barber - Last Filed: 10/19/24 07:20> Percussion: Yes normal to percussion <LIMA Nelson Last Filed: 10/19/24 07:44> Skin: General skin exam: no rashes or lesions noted <LIMA Nelson Last Filed: 10/19/24 07:44> Neuro: General: patient oriented x3 <Yumiko Barber - Last Filed: 10/19/24 07:20> Objective Data Active Medications Acetaminophen (Acetaminophen 325 Mg Tablet) 650 mg PO Q6H PRN PRN Reason: Pain, Mild 1-3,fever,headache Bupropion HCl (Bupropion Hcl Xl 150 Mg Tab.Er.24h) 150 mg PO DAILY [facility] Calcium Carbonate (Calcium Carbonate 750 Mg Tab.Chew) 750 mg PO Q4H PRN PRN Reason: Heartburn Docusate Sodium (Docusate Sodium 100 Mg Capsule) 100 mg PO BID [facility] Last Admin: 10/18/24 19:41 Dose: 100 mg Documented By: ROSY Escitalopram Oxalate (Escitalopram Oxalate 20 Mg Tablet) 20 mg PO DAILY [facility] Lactated Ringer's (Lr) 1,000 mls @ 80 mls/hr IVCONT .[id number] [facility] Last Admin: 10/19/24 02:24 Dose: 80 mls/hr Documented By: ROSY Ibuprofen (Ibuprofen 800 Mg Tablet) 800 mg PO TID [facility] Last Admin: 10/18/24 20:47 Dose: Not Given Documented By: ROSY Non-Admin Reason: Patient Refused Lorazepam (Lorazepam 1 Mg Tablet) 1 mg PO BID PRN PRN Reason: Anxiety Last Admin: 10/18/24 19:41 Dose: 1 mg Documented By: ROSY Methadone HCl (Methadone Hcl 20 Mg/2 Ml Oral.Conc) 140 mg PO DAILY@0800 [facility] Last Admin: 10/18/24 19:41 Dose: 140 mg Documented By: ROSY Co-signed By: MARIANELA Morphine Sulfate (Morphine Sulfate 4 Mg/Ml Cartridge) 4 mg IVPUSH Q4H PRN; Protocol PRN Reason: Pain, Severe (Pain Scale 7-10) Last Admin: 10/19/24 02:19 Dose: 4 mg Documented By: ROSY Nicotine (Nicotine 21 Mg Patch.Td24) 21 mg TRANSDERMA DAILY [facility] Last Admin: 10/18/24 18:59 Dose: 21 mg Documented By: BROValentina Ondansetron HCl (Ondansetron Hcl 4 Mg/2 Ml Vial) 4 mg IVPUSH Q8H PRN PRN Reason: Nausea and Vomiting Last Admin: 10/18/24 19:00 Dose: 4 mg Documented By: DOBROValentina Oxycodone HCl (Oxycodone Hcl Immed Release 5 Mg Tablet) 10 mg PO Q4H PRN PRN Reason: Pain, Moderate(Pain Scale 4-6) Last Admin: 10/18/24 23:05 Dose: 10 mg Documented By: ROSY Sodium Chloride (0.9 % Sodium Chloride Flush 3 Ml Syringe) 3 ml IVFLUSH QSHIFT [facility] Last Admin: 10/19/24 00:08 Dose: Not Given Documented By: ROSY Non-Admin Reason: IV Running Trazodone HCl (Trazodone Hcl 100 Mg Tablet) 100 mg PO BEDTIME [facility] Last Admin: 10/18/24 19:41 Dose: 100 mg Documented By: ROSY <Yumiko Barber - Last Filed: 10/19/24 07:20> Labs CBC & Chem 7: 10/17/24 20:10 10/18/24 09:49 <Yumiko Barber - Last Filed: 10/19/24 07:20> Labs: Laboratory Results - last 24 hr 10/18/24 09:49 Hold Purple Top SEE NOTE Anion Gap 10 L Estim Creat Clear Calc 133.7 Estimated GFR > 60 Random Glucose 85 Calcium 8.1 L D Total Bilirubin 0.5 AST 26 ALT 19 Alkaline Phosphatase 65 Total Protein 5.7 L Albumin 3.4 L <Yumiko Barber - Last Filed: 10/19/24 07:20> Microbiology Microbiology Results: Microbiology 10/17/24 20:39 Urine Culture - Preliminary Urine clean catch - Clean Catch Midstream No growth to date. <Yumiko Barber - Last Filed: 10/19/24 07:20> Procedures Date of Service Date of Service: 10/19/24 <Yumiko Barber - Last Filed: 10/19/24 07:20> 10/19/24 <Kelly Gaytan PA-C - Last Filed: 10/19/24 07:44> 10/20/24 <Jim Mcdonnell MD - Last Filed: 10/20/24 08:25> Progress Note: A&P Assessment and plan (1) Acute appendicitis: Status: Acute <Yumiko Barber - Last Filed: 10/19/24 07:20> Assessment and Plan: had some nausea c/o incisional pain passing flatus no fever abd soft clinically looks well anticipate issues with pain control as she is on methadone - she says this is for her chronic back pain ambulate plan to dc home later today seen and examined independently <Jim Mcdonnell MD - Last Filed: 10/20/24 08:25> (2) S/P laparoscopic appendectomy: Status: Acute <Yumiko Blandon - Last Filed: 10/19/24 07:20> Assessment and Plan: Diana is POD #1 from appendectomy. She reports a lot of pain this morning, advanced diet and liquids last night but felt nauseous. No vomiting, bowel movement or gas passed reported. She is ambulating to the bathroom to urinate. Will discuss plans to go home today. <Yumiko Blandon - Last Filed: 10/19/24 07:20> Diana is POD #1 from appendectomy. She reports a lot of pain this morning, advanced diet and liquids last night but felt nauseous. No vomiting, bowel movement or gas passed reported. She is ambulating to the bathroom to urinate. Will discuss plans to go home today. Agree with above assessment. Overall doing well post op. Patient comfortable with analgesics. C/o nausea last night, somewhat imprved. VSS. Abd exam benign with appropriate post op tenderness, dressings clean and intact. Will reassess later today, if able to tolerate solid diet and comfortable, stable for dc to home. Patient comfortable with plan. OOB/ambulation and increasing activity, incentive spirometer. Discussed moderate stool burden and bowel regimen at home recommended with methadone. <Kelly Gaytan PA-C - Last Filed: 10/19/24 07:44> Time Spent With Patient Time: Total time managing care of this patient today ____ minutes. <Yumiko Blandon - Last Filed: 10/19/24 07:20> Quality Stroke Does the patient have a stroke diagnosis?: No <LIMA Nelson Last Filed: 10/19/24 07:44> VTE Prior VTE?: No <LIMA Nelson Last Filed: 10/19/24 07:44> VTE Risk Level:: Surgical - moderate <Yumiko Barber - Last Filed: 10/19/24 07:20> VTE Device Contraindication: N/A - Device Ordered <Yumiko Barber - Last Filed: 10/19/24 07:20> VTE Drug Contraindication: N/A - Med Ordered <Yumiko Barber - Last Filed: 10/19/24 07:20>
[2024-10-19 07:29] VITALS: BP 132/75; PULSE 70; RESP 18; TEMP 36.6; O2SAT 96
[2024-10-19] MEDS: Nicotine 21 MG PATCH.TD24 TRANSDERMA (07:33)
[2024-10-19] MEDS: Escitalopram Oxalate 20 MG TABLET PO (07:33)
[2024-10-19] MEDS: Docusate Sodium 100 MG CAPSULE PO ×2 (07:33→20:24)
[2024-10-19] MEDS: buPROPion HCl XL 150 MG TAB.ER.24H PO (07:33)
[2024-10-19] MEDS: LORazepam 1 MG TABLET PO ×2 (07:39→19:38)
--- NOTE | 2024-10-19 08:52 | HO.POSTANES ---
Post Anesthesia Evaluation Post Anesthesia Evaluation Date of Service: 10/19/24 Vital Signs: Vital Signs Temp Pulse Resp BP Pulse Ox O2 Del Method 10/19/24 07:29 97.8 F 70 18 132/75 96 Room Air 10/19/24 03:20 99.2 F 67 18 121/60 92 Room Air 10/18/24 23:15 98.6 F 65 18 133/75 96 Room Air Anesthesia: General Endotracheal-GETA Mental Status: Awake Pain Control: Satisfactory Nausea/Vomiting: None Hydration: Adequate Anesthesia-Related Issues: No Anes. Related Issues
[2024-10-19] MEDS: oxyCODONE HCl Immed Release 5 MG TABLET 10 MG PO ×4 (09:09→21:45)
[2024-10-19 11:54] VITALS: BP 160/85; PULSE 74; RESP 17; TEMP 36.6; O2SAT 97
--- NOTE | 2024-10-19 13:05 | PM.EVENT ---
Event Note Date of Service: 10/19/24 Event Note: Seen on mid day rounds Says she anticipates poor pain control at home She wants to stay another day She looks well overall Encouraged to ambulate Abdomen is soft Vital signs stable Tolerating diet Continue pain management Time Spent With Patient Time: Total time managing care of this patient today ____ minutes.
[2024-10-19 15:22] VITALS: BP 164/98; PULSE 65; RESP 17; TEMP 37; O2SAT 95
[2024-10-19] MEDS: methADONE HCl 20 MG/2 ML ORAL.CONC 140 MG PO (17:06)
[2024-10-19 20:00] VITALS: BP 133/65; PULSE 60; RESP 18; TEMP 36.4; O2SAT 93
[2024-10-19] MEDS: traZODone HCL 100 MG TABLET PO (20:24)
[2024-10-19 23:48] VITALS: BP 126/71; PULSE 65; RESP 20; TEMP 36.4; O2SAT 96
[2024-10-20] MEDS: Morphine Sulfate 4 MG/ML CARTRIDGE IVPUSH ×2 (02:21→07:30)
[2024-10-20 03:37] VITALS: BP 111/62; PULSE 61; RESP 20; TEMP 36.5; O2SAT 94
[2024-10-20] MEDS: oxyCODONE HCl Immed Release 5 MG TABLET 10 MG PO ×2 (05:19→09:21)
[2024-10-20 07:24] VITALS: BP 138/61; PULSE 69; RESP 16; TEMP 36.4; O2SAT 95
--- NOTE | 2024-10-20 07:38 | P.PNGS_ITS ---
Subjective Subjective Date of Service: 10/20/24 <Kelly Gaytan PA-C - Last Filed: 10/20/24 07:41> 10/20/24 <Jim Mcdonnell MD - Last Filed: 10/20/24 08:25> Interval history: Feels a little better this morning. Less pain. States she has been refusing motrin because she is getting stronger pain meds. <Kelly Gaytan PA-C - Last Filed: 10/20/24 07:41> Physical Exam 2 Vital Signs: Vital Signs: Last Vital Signs Temp 97.6 F 10/20/24 07:24 Pulse 69 10/20/24 07:24 Resp 16 10/20/24 07:24 BP 138/61 10/20/24 07:24 Pulse Ox 95 10/20/24 07:24 O2 Del Method Room Air 10/20/24 07:24 O2 Flow Rate 2 10/18/24 14:30 BMI result Body Mass Index 41.7 <Kelly Gaytan PA-C - Last Filed: 10/20/24 07:41> Const: General: comfortable, no acute distress and alert <LIMA Nelson Last Filed: 10/20/24 07:41> Orientation/consciousness: patient oriented x3 <LIMA Nelson Last Filed: 10/20/24 07:41> Resp: Effort & Inspection: normal respiratory effort <Kelly Gaytan PA-C - Last Filed: 10/20/24 07:41> GI: Other: incisions clean <Kelly Gaytan PA-C - Last Filed: 10/20/24 07:41> Inspection: No distended <LIMA Nelson Last Filed: 10/20/24 07:41> Palpation (GI): Soft to palpation, Tenderness to palpation present (GI) (mild incisional) and no guarding <LIMA Nelson Last Filed: 10/20/24 07:41> Skin: General skin exam: no rashes or lesions noted <LIMA Nelson Last Filed: 10/20/24 07:41> Neuro: General: patient oriented x3 and moves all extremities <Kelly Gaytan PA-C - Last Filed: 10/20/24 07:41> Objective Data Active Medications Acetaminophen (Acetaminophen 325 Mg Tablet) 650 mg PO Q6H PRN PRN Reason: Pain, Mild 1-3,fever,headache Bupropion HCl (Bupropion Hcl Xl 150 Mg Tab.Er.24h) 150 mg PO DAILY [facility]PLAC[facility] BY [facility] Last Admin: 10/19/24 07:33 Dose: 150 mg Documented By: ZAYNAB Calcium Carbonate (Calcium Carbonate 750 Mg Tab.Chew) 750 mg PO Q4H PRN PRN Reason: Heartburn Docusate Sodium (Docusate Sodium 100 Mg Capsule) 100 mg PO BID [facility]PLAC[facility] BY [facility] Last Admin: 10/19/24 20:24 Dose: 100 mg Documented By: ROSY Escitalopram Oxalate (Escitalopram Oxalate 20 Mg Tablet) 20 mg PO DAILY [facility]PLAC[facility] BY [facility] Last Admin: 10/19/24 07:33 Dose: 20 mg Documented By: ZAYNAB Ibuprofen (Ibuprofen 800 Mg Tablet) 800 mg PO TID REPLACED BY [facility] Last Admin: 10/19/24 20:59 Dose: Not Given Documented By: ROSY Non-Admin Reason: Patient Refused Lorazepam (Lorazepam 1 Mg Tablet) 1 mg PO BID PRN PRN Reason: Anxiety Last Admin: 10/19/24 19:38 Dose: 1 mg Documented By: ROSY Methadone HCl (Methadone Hcl 20 Mg/2 Ml Oral.Conc) 140 mg PO DAILY@1600 REPLACED [facility] Last Admin: 10/19/24 17:06 Dose: 140 mg Documented By: ZAYNAB Co-signed By: ROYA Morphine Sulfate (Morphine Sulfate 4 Mg/Ml Cartridge) 4 mg IVPUSH Q4H PRN; Protocol PRN Reason: Pain, Severe (Pain Scale 7-10) Last Admin: 10/20/24 07:30 Dose: 4 mg Documented By: CANDE Nicotine (Nicotine 21 Mg Patch.Td24) 21 mg TRANSDERMA DAILY REPLACED BY [facility] Last Admin: 10/19/24 07:33 Dose: 21 mg Documented By: ZAYNAB Ondansetron HCl (Ondansetron Hcl 4 Mg/2 Ml Vial) 4 mg IVPUSH Q8H PRN PRN Reason: Nausea and Vomiting Last Admin: 10/18/24 19:00 Dose: 4 mg Documented By: ZAYNAB Oxycodone HCl (Oxycodone Hcl Immed Release 5 Mg Tablet) 10 mg PO Q4H PRN PRN Reason: Pain, Moderate(Pain Scale 4-6) Last Admin: 10/20/24 05:19 Dose: 10 mg Documented By: ROSY Polyethylene Glycol (Polyethylene Glycol 3350 17 Gm Powd.Pack) 17 gm PO DAILY REPLACED BY [facility] Sodium Chloride (0.9 % Sodium Chloride Flush 3 Ml Syringe) 3 ml IVFLUSH QSHIFT REPLACED BY [facility] Last Admin: 10/20/24 00:00 Dose: Not Given Documented By: ROSY Non-Admin Reason: IV Running Trazodone HCl (Trazodone Hcl 100 Mg Tablet) 100 mg PO BEDTIME REPLACED BY [facility] Last Admin: 10/19/24 20:24 Dose: 100 mg Documented By: ROSY <Kelly Gaytan PA-C - Last Filed: 10/20/24 07:41> Labs CBC & Chem 7: 10/17/24 20:10 10/18/24 09:49 <Kelly Gaytan PA-C - Last Filed: 10/20/24 07:41> Microbiology Microbiology Results: Microbiology 10/17/24 20:39 Urine Culture - Final Urine clean catch - Clean Catch Midstream <Kelly Gaytan PA-C - Last Filed: 10/20/24 07:41> Procedures Date of Service Date of Service: 10/20/24 <Kelly Gaytan PA-C - Last Filed: 10/20/24 07:41> 10/20/24 <Jim Mcdonnell MD - Last Filed: 10/20/24 08:25> Progress Note: A&P Assessment and plan (1) S/P laparoscopic appendectomy: Status: Acute <eKlly Gaytan PA-C - Last Filed: 10/20/24 07:41> Assessment and Plan: Feels much better this morning Says she is ready to be discharged Tolerating diet Abdomen is soft and benign Incisions clean and dry Okay to DC home Instructions reinforced with patient Seen and examined independently <Jim Mcdonnell MD - Last Filed: 10/20/24 08:25> (2) Acute appendicitis: Status: Acute <Kelly Gaytan PA-C - Last Filed: 10/20/24 07:41> Assessment and Plan: Overall feels improved, feels comfortable to go home today. Tolerating solid diet. VSS. Abd exam benign with appropriate post op tenderness, incisions clean. Stable for dc today and f/u in office in 2 weeks. Discussed moderate stool burden and bowel regimen at home recommended with methadone. Discussed using tylenol and motrin at home and alternating these to help with pain control. <Kelly Gaytan PA-C - Last Filed: 10/20/24 07:41> Time Spent With Patient Time: Total time managing care of this patient today ____ minutes. <Kelly Gaytan PA-C - Last Filed: 10/20/24 07:41> Quality Stroke Does the patient have a stroke diagnosis?: No <Kelly Gaytan PA-C - Last Filed: 10/20/24 07:41> VTE Prior VTE?: No <Kelly Gaytan PA-C - Last Filed: 10/20/24 07:41> VTE Risk Level:: Surgical - moderate <LIMA Nelson Last Filed: 10/20/24 07:41> VTE Device Contraindication: N/A - Device Ordered <LIMA Nelson Last Filed: 10/20/24 07:41> VTE Drug Contraindication: N/A - Med Ordered <Kelly Gaytan PA-C - Last Filed: 10/20/24 07:41>
[2024-10-20] MEDS: Nicotine 21 MG PATCH.TD24 TRANSDERMA (09:14)
[2024-10-20] MEDS: polyethylene glycoL 3350 17 GM POWD.PACK PO (09:14)
[2024-10-20] MEDS: buPROPion HCl XL 150 MG TAB.ER.24H PO (09:14)
[2024-10-20] MEDS: LORazepam 1 MG TABLET PO (09:14)
[2024-10-20] MEDS: Escitalopram Oxalate 20 MG TABLET PO (09:15)
[2024-10-20] MEDS: Ibuprofen 800 MG TABLET PO (09:15)
[2024-10-20] MEDS: Docusate Sodium 100 MG CAPSULE PO (09:15)
[2024-10-20] MEDS: 0.9 % Sodium Chloride Flush 3 ML SYRINGE IVFLUSH (09:20)
--- NOTE | 2024-10-20 09:46 | MHC.CM.PN ---
PT IS DCD HOME SELF CARE
[2024-10-20 10:51] VITALS: BP 140/74; PULSE 83; RESP 16; TEMP 36.4; O2SAT 96
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
--- NOTE | 2024-10-22 16:05 | PC.NURSE ---
Late Entry--correction to typo on SEP pain assessment: On 10/18/24 at 0822 this RN administered Morphine 4mg to Pt for the complaint of back pain. At this time Pt reported pain to be a 10/10.
== END 2024-10-20 11:50 | disposition home or self-care (01) | DRG 234 ==
LOC: HO.ED 10-18 00:26 → HO.EDOVER 10-18 00:45 → HO.S3 10-18 12:42
PROVIDERS: Physician Assistant; Surgery; Admitting Provider Surgery; Emergency Provider Emergency Medicine; PCP Family Medicine; Visit Provider Surgery
PROC: 0DTJ4ZZ Resection of Appendix, Percutaneous Endoscopic Approach (ICD-10-PCS; CPT 44970; principal; 2024-10-18 13:00)
DX: K35.80 Unspecified acute appendicitis (principal); E66.01 Morbid (severe) obesity due to excess calories; F11.20 Opioid dependence, uncomplicated; F17.210 Nicotine dependence, cigarettes, uncomplicated; Z71.6 Tobacco abuse counseling; Z68.41 Body mass index [BMI] 40.0-44.9, adult; Z71.3 Dietary counseling and surveillance; Z20.822 Contact with and (suspected) exposure to COVID-19; Z79.899 Other long term (current) drug therapy
CPT/HCPCS: 0241U; 36415; 74177; 80053; 81001; 83690; 84702; 85025; 87086; 88304; 99285; J0665; J1171; J2003; J2060; J2250; J2270; J2405; J2543; J2704; J3010; J7120; Q9967

== ENCOUNTER → 2024-10-17 20:30 | Outpatient (BNV) | payer OTHER, SELFPAY | PROVIDERS: Emergency Provider Emergency Medicine; PCP Family Medicine; Visit Provider Radiology Neuroradiology | DX: K38.1 Appendicular concretions (principal); R16.1 Splenomegaly, not elsewhere classified | CPT/HCPCS: 74177 ==

== ENCOUNTER → 2024-10-17 23:29 | Outpatient (BNV) | payer OTHER, SELFPAY | PROVIDERS: Admitting Provider Surgery; Emergency Provider Emergency Medicine; PCP Family Medicine; Visit Provider Surgery | DX: K35.890 Other acute appendicitis without perforation or gangrene (principal) | CPT/HCPCS: 44970; 99024; 99222; 99499 ==

== ENCOUNTER 2025-04-11 17:14 | Emergency (ER) | payer OTHER, SELFPAY ==
--- NOTE | ~2025-04-11 | XR_ITS ---
CLINICAL HISTORY: Shortness of breath 2 weeks 1 view chest x-ray Comparison: None Findings: There is mild enlargement of the cardiopericardial silhouette. There is mild increase of interstitial lung markings. No consolidation. No acute fracture. IMPRESSION: Mild Cardiomegaly with mild pulmonary vascular congestion. This document has been electronically signed by: True Meyers MD on 04/11/2025 18:57:06
--- NOTE | ~2025-04-11 | CT_ITS ---
CLINICAL HISTORY: sob, pleuritic chest pain CT angiography chest with contrast. MIP postprocessing. Comparison: CR - XR CHEST 2V - 04/11/25 18:[address]/SR - CT ABDOMEN PELVIS W IV CON - 10/17/24 21:10 EDT Findings: There is appropriate contrast opacification of the main, lobar, and segmental pulmonary arteries. No filling defects identified to suggest pulmonary embolism. Thoracic aorta is nonaneurysmal. Mild styles chamber cardiac dilation. No pathologically enlarged mediastinal, hilar, or axillary lymph nodes. Mild areas of hazy density within the lower lobes bilaterally. Trace bilateral pleural effusions. No dense area of consolidation. No pneumothorax. Hepatosplenomegaly seen within the upper abdomen. No free fluid or free air within the upper abdomen. Gallbladder surgically absent. No acute bony abnormality. IMPRESSION: 1. No pulmonary embolus. 2. Findings suggestive of mild volume overload. 3. Hepatosplenomegaly. Please note that the liver and spleen are not completely included in the field of view on this chest CT. This document has been electronically signed by: Galindo Diaz MD on 04/12/2025 01:51:15
[2025-04-11 17:34] VITALS: BP 182/86; PULSE 64; RESP 18; TEMP 36.7; O2SAT 95; BMI 44.0
--- NOTE | 2025-04-11 17:41 | ED.GENADULT ---
HPI - General Adult General Chief complaint: Dyspnea Stated complaint: difficulty breathing Time Seen by Provider: 04/11/25 21:43 Source: patient Limitations: no limitations History of Present Illness ED Provider: Chelsea Hall PA-C HPI narrative: 39F with past medical history of morbid obesity, anxiety/depression, tobacco use disorder, opioid use disorder on methadone presents to the ED for evaluation of dyspnea. Worsening for the last few weeks with associated bilateral leg edema. Patient unable to take deep breaths. Has been sleeping sitting up on a couch. Dyspnea is worse with exertion. Chest pain with movement and deep inspiration. No recent illnesses or upper respiratory symptoms. Appendectomy a few months ago. Patient does not seek routine medical care. Related Data Home Medications ?Medication ?Instructions ?Recorded ?Confirmed bupropion HCl 150 mg 24 hr tablet, 150 mg PO DAILY 10/18/24 10/18/24 extended release escitalopram oxalate 20 mg tablet 20 mg PO DAILY 10/18/24 10/18/24 ibuprofen 800 mg tablet 800 mg PO TID 10/18/24 10/18/24 lorazepam 1 mg tablet 1 mg PO BID PRN Anxiety 10/18/24 10/18/24 methadone 10 mg/mL oral concentrate 140 mg PO DAILY 10/18/24 trazodone 100 mg tablet 100 mg PO BEDTIME 10/18/24 10/18/24 Previous Rx's ?Medication ?Instructions ?Recorded docusate sodium 100 mg capsule 100 mg PO BID #30 caps 10/19/24 (Colace) oxycodone 5 mg tablet 5 mg PO Q4H PRN pain (scale score 10/19/24 7-10) #26 tabs amlodipine 5 mg tablet 5 mg PO BID #60 tabs 04/12/25 ketorolac 10 mg tablet 10 mg PO Q6H PRN pain #20 tabs 04/12/25 Allergies Allergy/AdvReac Type Severity Reaction Status Date / Time No Known Allergies Allergy Verified 04/11/25 17:37 Review of Systems Review of Systems: Yes all other systems are reviewed and are negative Constitutional: Constitutional: Reports fatigue, Denies fever(s) and Reports malaise Cardiovascular: Cardiovascular: Reports chest pain, Reports leg edema, Reports dyspnea, Reports dyspnea on exertion and Reports orthopnea Respiratory: Respiratory: Denies cough, Reports dyspnea, Reports dyspnea on exertion and Denies wheezing Gastrointestinal: Gastrointestinal: Denies abdominal pain Endocrine: Endocrine: Reports fatigue Allergic/Immunologic: Allergic/Immunologic: Denies wheezing PMFSH Past Medical History Attestation statement: The following information was validated with the patient. Medical History (Updated 04/12/25 @ 06:14 by LEXIE Gee) Anxiety and depression Morbid obesity Social History Social History Household Members: Children Housing: Apartment Do you presently have visiting nurse or other home services: No Patient Tobacco Use Status: Current everyday Tobacco user Tobacco use type: Cigarette Cigarettes Per Day: 5 Advance Directives: No Advance Directives Information Provided: No Do you have a plan to hurt others: No Plan service: No Physical Exam ED Vital Signs: Vital Signs - 24 hr 04/11/25 17:34 04/11/25 22:20 04/12/25 00:56 Temperature 98.1 F Pulse Rate 64 59 63 Respiratory Rate 18 18 Blood Pressure 182/86 H 163/85 H Pulse Oximetry 95 97 Oxygen Delivery Method Room Air Room Air 04/12/25 00:57 04/12/25 05:59 Temperature 98.3 F Pulse Rate 60 86 Respiratory Rate 18 18 Blood Pressure 165/79 H 179/98 H Pulse Oximetry 98 97 Oxygen Delivery Method Room Air Room Air BMI result Body Mass Index 44.0 Const Other: Alert, appears older than stated age Orientation/consciousness: patient oriented x3 Resp Other: Somewhat diminished, no wheezing, poor inspiratory effort Cardio Other: Normal peripheral perfusion, pitting edema noted Skin Other: Warm dry no rash Neuro General: patient oriented x3, gait normal, no focal motor deficits and CN's II-XI intact bilaterally Psych Other: Cooperative, anxious, tearful Course Course Course Narrative: This is a rapid medical exam performed by Erika Schultz NP: Additional HPI, ROS, PE not included below will be deferred to primary provider. Patient is a 39-year-old female with history of obesity, laparoscopic appendectomy, anxiety and depression presenting in the emergency department at the recommendation of PCP for 2 weeks of dyspnea. She denies cough or fevers. Denies chest pain but reports body aches. She is not on OCPs but has a IUD. Plan: Viral serology, labs, chest x-ray Reevaluation(s) Reevaluation #1: I Chelsea Hall personally performed the history , physical and assessment of the patient.Elina COLORADO helped to formulate the documentation Medications Administered Discontinued Medications Generic Name Dose Route Start Last Admin Trade Name Kmei PRN Reason Stop Dose Admin Albuterol Sulfate 5 mg/ 0 mg 04/12/25 00:25 04/12/25 00:54 Albuterol/Ipratropium 3 ml INHALE 04/12/25 00:26 1 each ONCE ONE Administration Diazepam 5 mg 04/12/25 00:29 04/12/25 00:40 Diazepam 10 Mg/2 Ml Cartridge IVPUSH 04/12/25 00:30 5 mg STAT STA Administration Magnesium Sulfate 2 gm in 50 mls @ 150 mls/hr 04/12/25 00:25 04/12/25 01:09 Magnesium Sulfate/H2o IV 04/12/25 00:44 Infused ONCE ONE Infusion Acetaminophen 1,000 mg in 100 mls @ 400 mls/hr 04/12/25 04:45 04/12/25 05:01 Ofirmev IV 04/12/25 04:59 400 mls/hr ONCE ONE Administration Iohexol 85 ml 04/12/25 00:56 04/12/25 00:57 Iohexol 350 Mg/Ml 100 Ml Infus..Btl IV 04/12/25 00:57 85 ml ONCE ONE Administration Ketorolac Tromethamine 15 mg 04/12/25 00:44 04/12/25 00:48 Ketorolac Tromethamine 15 Mg/Ml Vial IVPUSH 04/12/25 00:45 15 mg ONCE ONE Administration Methylprednisolone Sodium Succinate 60 mg 04/12/25 00:25 04/12/25 00:40 Methylprednisolone Sod Succ 125 Mg/2 Ml Vial IVPUSH 04/12/25 00:26 60 mg ONCE ONE Administration Procedures Procedure Narrative Procedure Narrative: Ultrasound-guided IV 20 gauge 1-3/4 inch IV placed in right upper extremity. Adequate blood return flushes well secured with Tegaderm Medical Decision Making Medical Decision Making MDM Narrative: 39F with past medical history of morbid obesity, anxiety/depression, tobacco use disorder, opioid use disorder on methadone presents to the ED for evaluation of dyspnea. Worsening for the last few weeks with associated bilateral leg edema. Patient unable to take deep breaths. Has been sleeping sitting up on a couch. Dyspnea is worse with exertion. Chest pain with movement and deep inspiration. No recent illnesses or upper respiratory symptoms. Appendectomy a few months ago. Patient does not seek routine medical care. I've considered the following diagnoses: pulmonary embolism, pneumothorax, ACS, viral illness, pneumonia, CHF, COPD, asthma, interstitial lung disease. PERCed out. Troponin flat, EKG ____. Negative viral panel. CXR with no evidence of pneumothorax or pneumonia. Pro BNP __117.2__. SpO2 consistently >95% on room air. Per Chelsea Hall PA-C...... Patient here with multiple symptoms consistent with new onset heart failure. We will attempt bedside echo, her habitus is going to make it difficult. Poor images. Unable to obtain gross assessment. Added on troponin EKG and BNP. Also adding on a dimer, she complains of pleuritic chest pain, although there are no objective signs symptoms for DVT on exam, she is not hypoxic, she is not tachycardic at the moment. And technically she is PERC negative. I have independently reviewed the following tests: I've reviewed the following tests: CBC no anemia or leukocytosis, no electrolyte abnormality, troponin less than 2.7, proBNP 117.2, dimer 262 it is minimally elevated from the cutoff point, I am getting a CT, it will better differentiate the congestion that was found on chest x-ray. CXR Findings: There is mild enlargement of the cardiopericardial silhouette. There is mild increase of interstitial lung markings. No consolidation. No acute fracture. IMPRESSION: Mild Cardiomegaly with mild pulmonary vascular congestion. CTA chest : here is appropriate contrast opacification of the main, lobar, and segmental pulmonary arteries. No filling defects identified to suggest pulmonary embolism. Thoracic aorta is nonaneurysmal. Mild styles chamber cardiac dilation. No pathologically enlarged mediastinal, hilar, or axillary lymph nodes. Mild areas of hazy density within the lower lobes bilaterally. Trace bilateral pleural effusions. No dense area of consolidation. No pneumothorax. Hepatosplenomegaly seen within the upper abdomen. No free fluid or free air within the upper abdomen. Gallbladder surgically absent. No acute bony abnormality. IMPRESSION: 1. No pulmonary embolus. 2. Findings suggestive of mild volume overload. 3. Hepatosplenomegaly. Please note that the liver and spleen are not completely included in the field of view on this chest CT. Differential Diagnosis Differential Diagnoses: The differential diagnosis associated with the presentation includes See medical decision-making Admission/Observation Consideration of admission/observation: Escalation of care including admission/observation considered May require admission Lab Data MDM Lab Attestation statement: I reviewed the patient's lab results. 04/11/25 17:54 04/11/25 17:54 Labs: Lab Results 04/11/25 04/12/25 Range/Units 17:54 00:14 WBC 10.5 (4.8-10.8) X10*3/uL RBC 4.88 (4.20-5.50) X10*6/uL Hgb 13.8 (12.0-16.0) g/dl Hct 41.4 (37.0-47.0) % MCV 84.8 (80.0-98.0) fL MCH 28.3 (27.0-33.0) pg MCHC 33.3 (31.0-35.0) g/dl RDW 14.4 (11.0-16.0) % Plt Count 245 (160-400) X10*3/uL MPV 9.9 (9.4-12.3) fL Immature Gran % (Auto) 1.0 H (0.0-0.4) % Neut % (Auto) 68.0 (45-73) % Lymph % (Auto) 20.0 (20-40) % [place] % (Auto) 6.4 (2-11) % Eos % (Auto) 3.7 (0-4) % Baso % (Auto) 0.9 (0-2) % Lymph # (Auto) 2.1 (1.2-4.9) X10*3/uL [place] # (Auto) 0.7 (0.1-1.2) X10*3/uL Eos # (Auto) 0.4 (0.0-0.4) X10*3/uL Baso # (Auto) 0.1 (0.0-0.2) X10*3/uL Abs Immat Gran (auto) 0.10 H (0.00-0.03) X10*3/uL Absolute Neuts (auto) 7.2 (2.0-8.3) x10*3/uL Absolute Nucleated RBC 0.000 (0.0-0.012) X10*3/uL Nucleated RBC % (auto) 0.0 (0.0-0.2) /100WBC D-Dimer High Sensitivty 262 NG/ML Sodium 141 (135-145) mmol/L Potassium 4.1 (3.3-5.1) mmol/L Chloride 107 (96-108) mmol/L Carbon Dioxide 27 (22-29) mmol/L Anion Gap 11 L (12-20) BUN 10 (9-16) mg/dL Creatinine 0.75 (0.5-1.4) mg/dL Estim Creat Clear Calc 141.5 Estimated GFR > 60 Random Glucose 101 (60-115) mg/dL Calcium 9.2 D (8.4-10.2) mg/dL Total Bilirubin 0.3 (0.0-1.0) mg/dL AST 31 (5-31) U/L ALT 27 (0-31) U/L Alkaline Phosphatase 106 (39-117) U/L Troponin I High Sens < 2.7 (<3.5-17.0) ng/L NT-Pro-B Natriuret Pep 117.2 (<300) pg/mL Total Protein 7.1 (6.5-8.0) g/dL Albumin 4.4 (3.5-5.0) g/dL COVID-19 (EDILMA) Negative (Negative) COVID-19 Clin Com See Note Influenza Type A (RORY) Negative (Negative) Influenza Type B (RORY) Negative (Negative) Influenza A & B Note See Note Independent Interpretation I performed an independent interpretation of an: EKG Radiology Impression Discussion of test interpretation with radiology: I have reviewed the radiologist's reading. Discharge Plan Discharge Clinical Impression: Shortness of breath Patient Disposition: Home, Self-Care Instructions: Shortness of Breath (ED) Additional Instructions: With your screening labs, your cardiac enzyme was negative, another lab study that we screened for cardiac function was within normal limits as well. They angiogram of your chest was negative for clot in the lung, however it is concerning that you may be developing heart failure and COPD. You need to see pulmonology and Cardiology as an outpatient. You need to call your primary care provider today to schedule a follow up appointment so they can refer you to these specialties. I am starting you on a blood pressure medication, amlodipine, take it daily as directed. You received your 1st dose here in the emergency room. Use the ketorolac as needed for pain take it with food. Prescriptions: New amlodipine 5 mg tablet 5 mg PO BID Qty: 60 0RF ketorolac 10 mg tablet 10 mg PO Q6H PRN (Reason: pain) Qty: 20 0RF Rx Instructions: maximum total duration of 5 days from all oral, intranasal, or parenteral formulations. The patient received an IV dose of Toradol here in the emergency room No Action ibuprofen 800 mg tablet 800 mg PO TID trazodone 100 mg tablet 100 mg PO BEDTIME lorazepam 1 mg tablet 1 mg PO BID PRN (Reason: Anxiety) escitalopram oxalate 20 mg tablet 20 mg PO DAILY bupropion HCl 150 mg tablet extended release 24 hr 150 mg PO DAILY methadone 10 mg/mL Concentrate 140 mg PO DAILY docusate sodium [Colace] 100 mg capsule 100 mg PO BID Qty: 30 0RF oxycodone 5 mg tablet 5 mg PO Q4H PRN (Reason: pain (scale score 7-10)) Qty: 26 0RF Rx Instructions: Partial Fill upon patient request. Print Language: Bhutanese
[2025-04-11 17:59] LABS: MANUAL DIFF FLAG NO
[2025-04-11 18:04] LABS: Hematocrit 41.4 % (37.0-47.0); Hemoglobin 13.8 g/dl (12.0-16.0); Imm Gran Abs Auto 0.10 X10*3/uL (0.00-0.03); Imm Gran Pct Auto 1.0 % (0.0-0.4); Lymphocytes Absolute Auto 2.1 X10*3/uL (1.2-4.9); Mean Corpuscular HGB Conc 33.3 g/dl (31.0-35.0); Mean Corpuscular Hemoglobin 28.3 pg (27.0-33.0); Mean Corpuscular Volume 84.8 fL (80.0-98.0); NRBC Abs Auto 0.000 X10*3/uL (0.0-0.012); NRBC Pct Auto 0.0 /100WBC (0.0-0.2); Platelet Count 245 X10*3/uL (160-400); Red Blood Count 4.88 X10*6/uL (4.20-5.50); White Blood Count 10.5 X10*3/uL (4.8-10.8)
[2025-04-11 18:15] LABS: Alanine Aminotransferase 27 U/L (0-31); Albumin Level 4.4 g/dL (3.5-5.0); Alkaline Phosphatase 106 U/L (39-117); Anion Gap 11 (12-20); Aspartate Amino Transferase 31 U/L (5-31); Blood Urea Nitrogen 10 mg/dL (9-16); Calcium 9.2 mg/dL (8.4-10.2); Carbon Dioxide 27 mmol/L (22-29); Chloride 107 mmol/L (96-108); Creatinine Clr Calc Pharmacy 141.5; Estimated Glomerular Filt Rate > 60; Potassium 4.1 mmol/L (3.3-5.1); Sodium 141 mmol/L (135-145); Total Protein 7.1 g/dL (6.5-8.0)
[2025-04-11 18:16] LABS: COVID-19 Test Negative (Negative); IDNOW Serial# 55D5AD1C; IDNOW Serial# 58CA691E; Influenza B2 Negative (Negative)
--- NOTE | 2025-04-11 21:02 | PC.NURSE ---
late entry Pt has approached triage door multiple times w/ c/o increased SOB/body aches.
[2025-04-11 22:16] LABS: Troponin-I High Sensitivity < 2.7 ng/L (<3.5-17.0)
[2025-04-11 22:20] VITALS: BP 163/85; PULSE 59; RESP 18; O2SAT 97
--- NOTE | 2025-04-11 22:40 | ECG_ITS ---
Test Reason : SOB Blood Pressure : */* mmHG Vent. Rate : 58 BPM Atrial Rate : 58 BPM P-R Int : 184 ms QRS Dur : 88 ms QT Int : 446 ms P-R-T Axes : 59 9 32 degrees QTcB Int : 437 ms Sinus bradycardia Moderate voltage criteria for LVH, may be normal variant ( R in aVL , Manoj product ) Borderline ECG When compared with ECG of 03-Jul-2024 19:03, No significant change was found Referred By: Chelsea Hall Electronically Signed By: VANIA KENDRICK MD
[2025-04-11 23:29] LABS: NT Pro B Type Natriuretic Pept 117.2 pg/mL (<300)
[2025-04-12 00:30] LABS: D Dimer High Sensitivity 262 NG/ML
[2025-04-12] MEDS: diazePAM 10 MG/2 ML CARTRIDGE 5 MG IVPUSH (00:40)
[2025-04-12] MEDS: Magnesium Sulfate/H2O 2 GM/50 ML PIGGYBACK IV (00:41)
[2025-04-12] MEDS: Albuterol Sulfate 5 MG, Albuterol/Iprat 2.5/0.5MG 3 ML 3 ML INHALE (00:54)
[2025-04-12 00:56] VITALS: PULSE 63; O2SAT 97
[2025-04-12 00:57] VITALS: BP 165/79; PULSE 60; RESP 18; O2SAT 98
[2025-04-12] MEDS: iohexoL 350 MG/ML 100 ML INFUS..BTL 85 ML IV (00:57)
[2025-04-12 05:59] VITALS: BP 179/98; PULSE 86; RESP 18; TEMP 36.8; O2SAT 97
[2025-04-12 06:46] VITALS: BP 179/98
[2025-04-12 06:51] VITALS: BP 179/98; PULSE 86; RESP 18; TEMP 36.8; O2SAT 97
--- NOTE | 2025-04-12 06:52 | PC.NURSE ---
Pt attempting to removed her own IV. Educated on risks and tw removed. catheter intact
== END 2025-04-12 06:57 | disposition home or self-care (01) ==
PROVIDERS: Physician Assistant Medical; Registered Nurse Emergency; Emergency Provider Emergency Medicine
DX: R06.00 Dyspnea, unspecified (principal); E66.01 Morbid (severe) obesity due to excess calories; Z68.41 Body mass index [BMI] 40.0-44.9, adult; Z72.0 Tobacco use; Z79.899 Other long term (current) drug therapy
CPT/HCPCS: 36415; 71046; 71275; 80053; 83880; 84484; 85025; 85379; 87502; 87635; 93005; 94640; 96361; 96365; 96375; 99284; 99285; J0131; J1885; J2919; J3360; J3475; Q9967

== ENCOUNTER → 2025-04-11 17:42 | Outpatient (BNV) | payer OTHER, SELFPAY | PROVIDERS: Visit Provider Nuclear Medicine | DX: R06.02 Shortness of breath (principal) | CPT/HCPCS: 71046 ==

== ENCOUNTER → 2025-04-11 22:40 | Outpatient (BNV) | payer OTHER, SELFPAY | PROVIDERS: Emergency Provider Emergency Medicine; Visit Provider Internal Medicine Cardiovascular Disease | DX: R00.1 Bradycardia, unspecified (principal) | CPT/HCPCS: 93010 ==

== ENCOUNTER → 2025-04-12 00:38 | Outpatient (BNV) | payer OTHER, SELFPAY | PROVIDERS: Emergency Provider Emergency Medicine; Visit Provider Radiology Diagnostic Radiology | DX: R06.02 Shortness of breath (principal); R07.81 Pleurodynia | CPT/HCPCS: 71275 ==